=== PATIENT | female | born 1975 | race Caucasian/White ===

== ENCOUNTER 2021-06-02 12:11 | Outpatient (CLI) | payer OTHER, SELFPAY ==
--- NOTE | 2021-06-02 13:00 | BRBX_PTH ---
PATIENT: LIS FLORES LOC: [facility] U#:[id number] AGE/SX: 46/F ROOM: RE06/02/[address]: Dr. Jazz Ferrer MD : [id number] BED: DIS: 06/02/2021 SPEC #: [id number] RECD: 06/02/21 13:34 STATUS: SARAH LANDY #: [id number] BARBI: 06/02/21 13:[address]: Jazz Ferrer DEPT: SURGICAL PATHOLOGY RECD BY: Brian Tsang ENTERED: 06/03/21 09:24 SP TYPE: BREAST BX OTHR DR: Dr. Grazyna Zhao MD Tissues: A - Left breast, NOS B - Left breast, NOS Procedures: Surgery Specimen Level IV HEADER OPERATION: Left stereotactic breast biopsy PRE-OP DIAGNOSIS: Amorphous calcifications left breast mid-depth 10 o?clock position TISSUE SUBMITTED: A ? 10 o?clock medial cluster microcalcifications, B - 10 o?clock lateral cluster microcalcifications ISCHEMIC TIME: 1 minute FIXATION TIME: 30.5 hours MICROSCOPIC DIAGNOSIS A. Left breast at 10 o?clock medial, stereotactic core biopsy: Fibrocystic change with associated microcalcifications. Focal intraductal hyperplasia without atypia. B. Left breast at 10 o?clock lateral, stereotactic core biopsy: Fibrocystic change with associated microcalcifications. Focal intraductal hyperplasia without atypia. AM:david 06/04/2021 MICROSCOPIC DESCRIPTION Slides are reviewed. GROSS DESCRIPTION A - Received in fixative is one container labeled with the patient's name and designated medial. The specimen consists of multiple elongated fragments of perez-yellow fibroadipose tissue that in aggregate measure 5 x 3 x 0.3 cm. The entire specimen is submitted in two cassettes. B - Received in fixative is one container labeled with the patient's name and designated lateral. The specimen consists of multiple elongated fragments of perez-yellow fibroadipose tissue that in aggregate measure 5 x 3 x 0.3 cm. The entire specimen is submitted in two cassettes. / SJ:david 06/03/2021 TC:5 CPT: 95087 x2
--- NOTE | 2021-06-02 13:05 | OP.PCM_ITS ---
Report of Operation Date of Procedure: 06/02/21 Pre-Operative Diagnosis: abnormal left breast mammograms - calcifications - two areas Post-Operative Diagnosis: same Surgery/Procedure Performed:: left stereotactic breast biopsies x 2 Description of Surgical Findings:: two areas of abnormal calcifications the lateral looks more suspicious Surgeon: Jazz Ferrer Type of Anesthesia: Local Specimen's removed: left breast tissue - medial and lateral appropriate marked Estimated Blood Loss (mL): minimal Description of Procedure: After informed consent was given, the patient was brought into the Breast Biopsy suite. Appropriate time out protocol was followed. The patient was placed in the prone position on the stereotactic biopsy table. The patient?s left breast was then placed in the opening at the head of the biopsy table. A mainspring strip gauger compression mammogram was then obtained in the CC view. The suspicious radiological lesion was thus identified. Stereo pictures of the lesion were then taken for XYZ coordinates. There were two sites of abnormal calcifications to be biopsied. The medial lesions were approached first. The Mammotome biopsy stylus was then positioned where it would be entering into the patient?s breast. The skin at this site was then cleansed with a surgical skin preparation. The skin and subcutaneous tissues at this site were then infiltrated with 1% xylocaine. A small skin incision was made with an 11 blade scalpel. The biopsy stylus was then positioned into the patient?s breast at the proper coordinates of depth. Using the Mammotome vacuum-assist device, several core samples of breast tissue were obtained. A specimen mammogram was the obtained. It revealed that the abnormal calcifications were within the specimen. I reviewed this personally and concluded that the tissue sampling was adequate. A bow-tie hemostatic marker clip was then placed into the biopsy cavity and a mainspring strip gauger film revealed that it was properly deployed. The lateral lesion was then approached next. Additional imaging was obtained for proper coordinates. The Mammotome biopsy stylus was then positioned where it would be entering into the patient?s breast. The skin at this site was then cleansed with a surgical skin preparation. The skin and subcutaneous tissues at this site were then infiltrated with 1% xylocaine. A small skin incision was made with an 11 blade scalpel. The biopsy stylus was then positioned into the patient?s breast at the proper coordinates of depth. Using the Mammotome vacuum-assist device, several core samples of breast tissue were obtained. A specimen mammogram was the obtained. It revealed that the abnormal calcifications were within the specimen. I reviewed this personally and concluded that the tissue sampling was adequate. A barbell hemostatic marker clip was then placed into the biopsy cavity and a mainspring strip gauger film revealed that it was properly deployed. A set of mammograms were taken which revealed the marker clips at the site of the previous suspicious lesions thus ensuring proper sampling. The patient tolerated the procedure well and was discharged from the Breast Biopsy suite in good condition.
== END 2021-06-02 23:59 | disposition short-term general hospital (02) ==
PROVIDERS: PCP Family Medicine; Visit Provider Surgery
DX: N60.12 Diffuse cystic mastopathy of left breast (principal); N62 Hypertrophy of breast
CPT/HCPCS: 19082; 19081; 88305; J7050; A4648

== ENCOUNTER 2021-11-17 07:58 | Outpatient (RCR) | payer OTHER, SELFPAY ==
[2021-11-17 08:53] VITALS: BP 128/98; PULSE 76; TEMP 36.3; BMI 42.6
--- NOTE | 2021-11-17 17:39 | PCM.WC.HP ---
History of Present Illness Date of Service: 11/17/21 Chief Complaint: Chronic venous insufficiency, chronic venous hypertension with inflammation, spontaneous bleeding from a vein in the right supramalleolar area History of Wound: This is a 46-year-old morbidly obese female with a longstanding history of chronic venous disease. She has a history of chronic venous insufficiency, varicose veins with inflammation, venous hypertension with inflammation, and leg swelling in both lower extremities. The patient was in her normal state of health until November 08, 2021, at which time, while exiting from the shower she noted spontaneous bleeding from a varicose vein in the right medial supramalleolar area. She applied manual pressure, and the emergency squad was called. She was transported by squad to the [facility] Emergency Department. Once within the Emergency Department tranexaminic acid was administered intravenously, and percutaneous dissolvable sutures were placed to eliminate the bleeding. The patient was discharged, and has done well since that time, without further evidence of bleeding from the site. Patient has a history of prior vein procedures. She underwent VenaSeal closure of the left great saphenous vein, small saphenous vein, and accessory saphenous vein on June 12, 2015. She underwent stab phlebectomy/microphlebectomy of left lower extremity varicose veins on September 07, 2014. VenaSeal closure of the right great saphenous vein and accessory saphenous vein was performed on March 03, 2017. She admits to noncompliance with recommended measures, including leg elevation and the wearing of graduated compression stockings. Additionally, she has not lost significant amount of weight, and is noted to be morbidly obese. She is active. She sleeps on a flat surface at night. 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 [facility] Medical History Chronic venous hypertension (idiopathic) with inflammation of right lower extremity Chronic venous insufficiency of lower extremity Bassett phlebectatica paraplantaris Morbid obesity Spontaneous hemorrhage Home Medications methylprednisolone 4 mg tablet 4 mg PO 4X/DAY 09/01/15 [History Last Taken 09/01/15 4 MG] triamcinolone acetonide 0.05 % topical ointment (Trianex) 17 g TP DAILY PRN Itching 09/01/15 [History Last Taken 09/01/15 17 GM] cephalexin 500 mg capsule 500 mg PO Q12 ##14 09/08/15 [Rx Last Taken Unknown] hydrocodone-acetaminophen 5-325mg 5mg-325mg 1 - 2 tab PO Q4H PRN PRN Mod-Severe Pain (4-1010) ##30 09/08/15 [Rx Last Taken Unknown] sertraline 50 mg tablet 50 mg PO DAILY 11/17/21 [History Last Taken Unknown] Allergy/AdvReac Type Severity Reaction Status Date / Time No Known Allergies Allergy Verified 11/17/21 09:25 Surgical History Status post laparoscopic appendectomy Status post left breast biopsy Status post right oophorectomy Social History Smoking Status: Never smoker Vital Signs Vital Signs Vital Signs: 11/17/21 08:53 Temperature 97.4 F L Temperature Source Temporal Pulse Rate 76 Blood Pressure 128/98 H Blood Pressure Mean 108 Blood Pressure Source Monitor Blood Pressure Position Semi-Fowlers Blood Pressure Location Right Arm Weight Weight: 233 lb Body Mass Index (BMI) 42.6 Physical Exam Const alert, oriented x3, no apparent distress and well nourished Constitutional Narrative: The patient is morbidly obese. General Appearance: cooperative, comfortable, well kempt and well developed Orientation / Consciousness: awake, oriented to person, oriented to place and oriented to time HEENT normocephalic, head/scalp atraumatic and hearing grossly normal bilaterally Head and Scalp: normal to inspection, normocephalic and atraumatic External Ear: external ears normal Eyes PERRL and EOMs intact bilaterally General Eye: normal appearance of both eyes Resp normal respiratory effort, normal air movement, no retractions and no use of accessory muscles Effort and Inspection: able to speak in complete sentences Extremity no calf tenderness General Extremity: Negative for clubbing or cyanosis Skin Wound Narrative: No significant swelling or edema are noted in the patient's lower extremities bilaterally. There are no significant skin changes on either side. There are no open wounds or ulcerations. In the right medial supramalleolar area, several dissolvable sutures are noted, which is at the site of recent spontaneous bleeding from a superficial vein. The vein itself is not visible. There is no evidence of infection or cellulitis at the site. No bleeding or drainage is noted. Bassett phlebectatica is noted near the right medial malleolus. Neuro oriented x3, CN's II-XII intact bilaterally and moves all extremities Sensorium / Orientation: awake, alert, oriented to person, oriented to place and oriented to time Psych Appearance: grossly normal and appropriate Attitude: calm Activity / Motor Behavior: appropriate eye contact Speech: normal speech Mood & Affect: euthymic mood Thought Process: normal thought process Thought Content: normal thought content Attention / Concentration: attention grossly intact Debridement Note Debridement Note No debridement was completed: No debridement was completed today (No open wounds or ulcerations are noted.) Post-Debridement Measurements and Additional Note: Post-Debridement Measurements/Treatment - Nurse 1 - General Ulcer Assessment Start: 11/17/21 08:51 Freq: Status: Active Protocol: KOSTA Activity Type Activity Date Activity User E-sign Co-sign Detail Recorded Client Recorded Date Recorded By Document 11/17/21 08:53 BRIDGET [id number] 11/17/21 09:08 BRIDGET 11/17/21 08:53 - Today's Visit Information Type of service Initial Visit Arrival Mode Ambulatory Patient Identification Verified (Name & Yes ) Height and Weight Height 5 ft 2 in Weight 233 lb Weight in Pounds 233.0 lbs Body Mass Index (BMI) 42.6 BMI Classification Obese BSA - Marie 2.04 Vital Signs Temperature (97.8 F-99.1 F) 97.4 F L Temperature Source Temporal Pulse Rate (60-100) 76 Pulse Location Monitor Blood Pressure (90/60-120/80) 128/98 H Blood Pressure Mean 108 Source Monitor Position Semi-Fowlers Blood Pressure Location Right Arm History Since Last Visit- (Skip if this is Patient's initial visit) Have you changed medications since your No last visit? Any new allergies or adverse reactions No Had a fall/change in ADL's that may No increase risk of falls Signs or symptoms of abuse and/or No neglect since last visit Have you been in the hospital since your No last visit? Has dressing in place as prescribed Yes Has compression in place as prescribed N/A Has offloadiing in place as prescribed N/A Experienced any changes in pain level or No management Left Footwear Regular Shoe Right Footwear Regular Shoe Pain Scale: 0-10 Numeric Is Patient Pain Free? Yes - Nurse 1 - General Ulcer Measurement Start: 11/17/21 08:51 Freq: Status: Active Protocol: Activity Type Activity Date Activity User E-sign Co-sign Detail Recorded Client Recorded Date Recorded By Document 11/17/21 08:53 KR [id number] 11/17/21 09:08 KR 11/17/21 08:53 Wound Center Nurse 1 #1 Right post lower extremity / sutures -Current Size (cm) - Length 0.1 -Current Size (cm) - Width 0.1 -Current Size (cm) - Depth 0.1 -Total Square Cm 0.01 -Exudate Amt None Present -Wound Margin Distinct, Outline Attached -Granulation Amt None Present (0 %) -Necrosis Amt None Present (0 %) -Texture (Jena-wound Skin Appearance) No Abnormality, Assessed -Moisture (Jena-wound Skin Appearance) Assessed,Dry/ Scaly -Color (Jena-wound Skin Appearance) No Abnormality, Assessed -Tenderness on Palpation (Jena-wound No Skin Appearance) Right Calf (cm) 52.1 Right Ankle (cm) 28.3 Left Calf (cm) 51.3 Left Ankle (cm) 29.6 - Nurse 3 - General Ulcer D/C NN Start: 11/17/21 08:51 Freq: Status: Active Protocol: Activity Type Activity Date Activity User E-sign Co-sign Detail Recorded Client Recorded Date Recorded By Document 11/17/21 09:48 ML [id number] 11/17/21 09:49 ML 11/17/21 09:48 Wound Care Nurse 3 Right -Tubular Bandage Single Layer -Size of Tubigrip Used Size E -Size E ($) 1 Left -Tubular Bandage Single Layer -Size of Tubigrip Used Size E -Size E ($) 1 Pain Scale: 0-10 Numeric Is Patient Pain Free? Yes - Visit Discharge Discharge Condition Stable Ambulatory Status Ambulatory Medication Reconcilliation completed & No provided to patient/care provider Clinical Summary of Care Provided Yes Assessment/Plan Assessment/Plan (1) Spontaneous hemorrhage: CODE(S): R58 - Hemorrhage, not elsewhere classified (2) Chronic venous hypertension (idiopathic) with inflammation of right lower extremity: CODE(S): I87.321 - Chronic venous hypertension (idiopathic) with inflammation of right lower extremity (3) Chronic venous insufficiency of lower extremity: CODE(S): I87.2 - Venous insufficiency (chronic) (peripheral) (4) Bassett phlebectatica paraplantaris: CODE(S): R09.89 - Other specified symptoms and signs involving the circulatory and respiratory systems (5) Morbid obesity: CODE(S): E66.01 - Morbid (severe) obesity due to excess calories (6) Status post laparoscopic appendectomy: CODE(S): Z90.49 - Acquired absence of other specified parts of digestive tract (7) Status post right oophorectomy: CODE(S): Z90.721 - Acquired absence of ovaries, unilateral (8) Status post left breast biopsy: CODE(S): Z98.890 - Other specified postprocedural states PLAN: Plan This is a morbidly obese 46-year-old female with a longstanding history of venous disease. She has previously undergone venous procedures in both lower extremities, as documented above. Approximately 9 days ago she experienced spontaneous bleeding from a superficial vein in the right medial supramalleolar area. She was treated in the emergency department by means of suture placement, and has had no subsequent problems since that time. We are to implement conservative treatment measures relative to the patient's venous disease. She has been advised to elevate her lower extremities is much as possible. Prolonged idle standing and sitting has been discouraged. Weight loss has been recommended. A prescription has been provided for graduated compression stockings of 20 to 30 mmHg compression. Patient is to obtain the stockings and to wear on a daily basis. The patient is to be scheduled for a venous duplex examination in the near future, to determine the extent of venous pathology in the lower extremities. Whether treatable pathology exists will be determined by the venous ultrasound findings, and the patient will return for further discussion of possible management options. In the interim, she is to continue with conservative treatment measures which include leg elevation, avoidance of idle standing and sitting, activity, the use of graduated compression stockings, weight control measures, etc. Total time: 65 minutes
== END 2021-11-19 14:51 | disposition home or self-care (01) ==
LOC: WC 07:58
PROVIDERS: PCP Physician Assistant; Visit Provider Surgery
DX: I87.321 Chronic venous hypertension (idiopathic) with inflammation of right lower extremity (principal); E66.01 Morbid (severe) obesity due to excess calories; Z68.41 Body mass index [BMI] 40.0-44.9, adult; M79.89 Other specified soft tissue disorders; Z91.19 Patient's noncompliance with other medical treatment and regimen; Z79.899 Other long term (current) drug therapy
CPT/HCPCS: 99213; G0463